=== PATIENT | male | born 1960 | race Caucasian/White ===

== ENCOUNTER 2018-04-22 20:01 | Observation (INO) | payer BC, OTHER ==
[~2018-04-22] VITALS: Ht 172.7 cm; Wt 93.1 kg
[~2018-04-22 20:01] MED LIST: ALLO300; MECL25 PO; PROM25SU8 PO
[2018-04-22 20:13] VITALS: BP 172/96; PULSE 82; RESP 18; TEMP 99; O2SAT 95
[2018-04-22] MEDS ORDERED: ASPIRIN 325 MG TAB PO ONE (20:15)
[2018-04-22] MEDS ORDERED: SODIUM CHLORIDE 0.9% FLUSH 10 ML FLUSH IVF PRN (20:15)
[2018-04-22] MEDS ORDERED: LISI-515 PO (20:18)
[2018-04-22] MEDS ORDERED: ALLO100T PO (20:18)
[2018-04-22] MEDS ORDERED: AMAN100T PO (20:18)
[2018-04-22] MEDS ORDERED: ZANT150T2 PO (20:19)
--- NOTE | 2018-04-22 20:21 | PD ---
HPI Chief Complaint: Chest Pain Time Seen by Provider: 20:09 Travel History International Travel<30 days: No Contact w/Intl Traveler<30days: No Traveled to known affect area: No History of Present Illness HPI This patient complains of chest pressure. Located in the center sternum. Duration 30 hours. No alleviating factors. No exacerbating factors. Symptoms are not exertional. He denies coronary artery disease. He had a negative stress test 5 years ago but not recently. Severity is moderate. No pleuritic symptoms. No shortness of breath or fever cough PFSH Past Medical History Gout: Yes (STARTED ALLOPURINAL JUL 2007) Kidney Stones: Yes Past Surgical History Appendectomy: Yes Other Surgery: Yes (LITHOTRIPSY) Social History Alcohol Use: Yes (2 TIMES PER MONTH SOCIALLY) Tobacco Use: No Substance Use: No Allergies-Medications (Allergen,Severity, Reaction): Coded Allergies: No Known Allergies (Verified Adverse Reaction, Unknown, 04/22/18) Reported Meds & Prescriptions Reported Meds & Active Scripts Active Reported Zantac (Ranitidine HCl) 150 Mg Tab 150 Mg PO DAILY Allopurinol 100 Mg Tab 100 Mg PO DAILY Lisinopril 20 Mg Tab 20 Mg PO DAILY Review of Systems General / Constitutional: No: Fever Eyes: No: Visual changes HENT: No: Headaches Cardiovascular: Positive: Chest Pain or Discomfort Respiratory: No: Shortness of Breath Gastrointestinal: No: Abdominal Pain Genitourinary: No: Dysuria Musculoskeletal: No: Pain Skin: No Rash Neurologic: No: Weakness Psychiatric: No: Depression Endocrine: No: Polydipsia Hematologic/Lymphatic: No: Easy Bruising Physical Exam Narrative GENERAL: Well-nourished, well-developed patient in no apparent distress. SKIN: Focused skin assessment reveals no rash and nodules. Skin is Warm and dry. HEAD: Atraumatic. Normocephalic. EYES: Pupils equal and round. No scleral icterus. No injection or drainage. ENT: No nasal bleeding or discharge. Mucous membranes pink and moist. NECK: Trachea midline. No JVD. CARDIOVASCULAR: Regular rate and rhythm. No murmur appreciated. RESPIRATORY: No accessory muscle use. Clear to auscultation. Breath sounds equal bilaterally. GASTROINTESTINAL: Abdomen soft, non-tender, nondistended. Hepatic and splenic margins not palpable. MUSCULOSKELETAL: No obvious deformities. No clubbing. No cyanosis. No edema. NEUROLOGICAL: Awake and alert. No obvious cranial nerve deficits. Motor grossly within normal limits. Normal speech. PSYCHIATRIC: Appropriate mood and affect; insight and judgment normal. Data Data Last Documented VS Vital Signs Date Time Temp Pulse Resp B/P (MAP) Pulse Ox O2 Delivery O2 Flow Rate FiO2 04/22/18 21:05 73 18 147/93 (111) 96 Room Air 04/22/18 20:13 99.0 Orders Orders Electrocardiogram (04/22/18 20:14) Basic Metabolic Panel (Bmp) (04/22/18 20:14) Ckmb (Isoenzyme) Profile (04/22/18 20:14) Complete Blood Count With Diff (04/22/18 20:14) Magnesium (Mg) (04/22/18 20:14) Prothrombin Time / Inr (Pt) (04/22/18 20:14) Act Partial Throm Time (Ptt) (04/22/18 20:14) Troponin I (04/22/18 20:14) Chest, Single Ap (04/22/18 20:14) Ecg Monitoring (04/22/18 20:14) Iv Access Insert/Monitor (04/22/18 20:14) Oximetry (04/22/18 20:14) Aspirin (Aspirin) (04/22/18 20:15) Sodium Chloride 0.9% Flush (Ns Flush) (04/22/18 20:15) CKMB (04/22/18 20:21) CKMB% (04/22/18 20:21) Labs Laboratory Tests Test 04/22/18 20:21 White Blood Count 8.1 TH/MM3 Red Blood Count 4.88 MIL/MM3 Hemoglobin 14.8 GM/DL Hematocrit 42.1 % Mean Corpuscular Volume 86.3 FL Mean Corpuscular Hemoglobin 30.4 PG Mean Corpuscular Hemoglobin Concent 35.2 % Red Cell Distribution Width 12.6 % Platelet Count 236 TH/MM3 Mean Platelet Volume 8.9 FL Neutrophils (%) (Auto) 52.5 % Lymphocytes (%) (Auto) 38.0 % Monocytes (%) (Auto) 7.4 % Eosinophils (%) (Auto) 1.6 % Basophils (%) (Auto) 0.5 % Neutrophils # (Auto) 4.3 TH/MM3 Lymphocytes # (Auto) 3.1 TH/MM3 Monocytes # (Auto) 0.6 TH/MM3 Eosinophils # (Auto) 0.1 TH/MM3 Basophils # (Auto) 0.0 TH/MM3 CBC Comment DIFF FINAL Differential Comment Prothrombin Time 11.9 SEC Prothromb Time International Ratio 1.2 RATIO Activated Partial Thromboplast Time 25.3 SEC Blood Urea Nitrogen 18 MG/DL Creatinine 1.20 MG/DL Random Glucose 126 MG/DL Calcium Level 8.9 MG/DL Magnesium Level 2.1 MG/DL Sodium Level 143 MEQ/L Potassium Level 3.0 MEQ/L Chloride Level 109 MEQ/L Carbon Dioxide Level 24.5 MEQ/L Anion Gap 10 MEQ/L Estimat Glomerular Filtration Rate 62 ML/MIN Total Creatine Kinase 145 U/L Creatine Kinase MB 0.9 NG/ML Troponin I LESS THAN 0.02 NG/ML MDM Medical Decision Making Medical Screen Exam Complete: Yes Emergency Medical Condition: Yes Medical Record Reviewed: Yes Differential Diagnosis Differential diagnosis includes [place], angina, pericarditis, pleurisy, GERD, anxiety. Narrative Course I have reviewed the patient's electronic medical record. I reviewed his EKG which shows sinus rhythm but no ST elevation Extended cardiac monitoring reveals sinus rhythm without ectopy I gave him an aspirin IV placed and labs sent I reviewed his chest x-ray which is normal Had a discussion regarding his chest discomfort. Etiology unclear but he has risk factors for CAD. Recommending observation in the chest pain center to rule out cardiac cause of his symptoms. He is agreeable Potassium is low at 3.0 otherwise labs are normal including cardiac enzyme I placed a call to the hospitalist to discuss Diagnosis Primary Impression: Chest pain Qualified Codes: R07.9 - Chest pain, unspecified Additional Impression: Hypokalemia Admitting Information Admitting Physician Requests: Observation Kory Cary MD Apr 22, 2018 20:21
[2018-04-22 20:45] LABS: AUTOMATED NEUTROPHIL # 4.3 TH/MM3 (1.8-7.7); BASOPHIL % 0.5 % (0.0-2.0); EOSINOPHIL # 0.1 TH/MM3 (0-0.4); EOSINOPHIL % 1.6 % (0.0-4.0); HEMATOCRIT 42.1 % (39.0-51.0); HEMOGLOBIN 14.8 GM/DL (13.0-17.0); LYMPHOCYTE # 3.1 TH/MM3 (1.0-4.8); MEAN CELL VOLUME 86.3 FL (80.0-100.0); MEAN CORPUSCULAR HEMOGLOBIN 30.4 PG (27.0-34.0); MEAN CORPUSCULAR HGB CONC 35.2 % (32.0-36.0); MEAN PLATELET VOLUME 8.9 FL (7.0-11.0); MONO % 7.4 % (0.0-8.0); MONOCYTE # 0.6 TH/MM3 (0-0.9); NEUT % 52.5 % (16.0-70.0); PLATELET COUNT 236 TH/MM3 (150-450); RED BLOOD COUNT 4.88 MIL/MM3 (4.50-5.90); RED CELL DISTRIBUTION WIDTH 12.6 % (11.6-17.2); WHITE BLOOD COUNT 8.1 TH/MM3 (4.0-11.0)
[2018-04-22 20:54] LABS: CHLORIDE 109 MEQ/L (98-107); SODIUM (NA) 143 MEQ/L (136-145)
[2018-04-22 20:56] LABS: BICARBONATE 24.5 MEQ/L (21.0-32.0); CALCIUM 8.9 MG/DL (8.5-10.1); GLUCOSE,RANDOM 126 MG/DL (74-106); MAGNESIUM 2.1 MG/DL (1.5-2.5)
[2018-04-22 20:57] LABS: BLOOD UREA NITROGEN 18 MG/DL (7-18)
[2018-04-22 21:00] LABS: GLOMERULAR FILTRATION RATE 62 ML/MIN (>89)
--- NOTE | 2018-04-22 21:02 | RADRPT ---
EXAM DATE: 04/22/2018 8:55 PM EDT AGE/SEX: 58 years / Male INDICATIONS: Chest pressure x 2 days. CLINICAL DATA: This is the patient's initial encounter. Patient reports that signs and symptoms have been present for 2 days and indicates a pain score of 6/10. MEDICAL/SURGICAL HISTORY: Hypertension. Renal calculi. Appendectomy. Lithotripsy. COMPARISON: No prior exams available for comparison. FINDINGS: Cardiomegaly with mild basilar atelectasis. No significant effusion. No pneumothorax. Degenerative ch alaina in the spine. CONCLUSION: Cardiomegaly with minimal basilar atelectasis. Electronically signed by: Bud Polk MD 04/22/2018 9:01 PM EDT
[2018-04-22 21:05] VITALS: BP 147/93; PULSE 73; RESP 18; O2SAT 96
[2018-04-22 21:05] LABS: TROPONIN I LESS THAN 0.02 NG/ML (0.02-0.05)
[2018-04-22 21:19] LABS: INTERNATIONAL NORMALIZED RATIO 1.2 RATIO; PROTHROMBIN TIME - PATIENT 11.9 SEC (9.8-11.6)
[2018-04-22] MEDS ORDERED: POTASSIUM CHLORIDE 25 MEQ EFFERVESCENT TAB PO ONE (21:30)
[2018-04-22] MEDS ORDERED: SODIUM CHLORIDE 0.9% FLUSH 10 ML FLUSH IV FLUSH PRN (21:45)
[2018-04-22 22:37] VITALS: BP 150/93
[2018-04-22 23:23] VITALS: O2SAT 97
[2018-04-22 23:46] VITALS: BP 156/94; PULSE 67; RESP 20; TEMP 98.1; O2SAT 97
[2018-04-23 01:00] VITALS: PULSE 60
[2018-04-23 02:43] LABS: TROPONIN I LESS THAN 0.02 NG/ML (0.02-0.05)
[2018-04-23 05:14] VITALS: BP 127/74; PULSE 56; RESP 18; TEMP 96.7; O2SAT 96
[2018-04-23 07:35] VITALS: BP 153/86; PULSE 53; RESP 20; TEMP 97.6; O2SAT 97
[2018-04-23 08:25] VITALS: O2SAT 96
[2018-04-23] MEDS ORDERED: LISINOPRIL 20 MG TAB PO SCH (09:00)
[2018-04-23] MEDS ORDERED: ALLOPURINOL 100 MG TAB PO SCH (09:00)
[2018-04-23] MEDS ORDERED: SODIUM CHLORIDE 0.9% FLUSH 10 ML FLUSH IV FLUSH SCH (09:00)
[2018-04-23] MEDS ORDERED: FAMOTIDINE 20 MG TAB PO SCH (09:00)
[2018-04-23 09:36] LABS: BICARBONATE 26.8 MEQ/L (21.0-32.0); CALCIUM 8.4 MG/DL (8.5-10.1); CREATININE 0.99 MG/DL (0.60-1.30)
[2018-04-23 10:21] LABS: TROPONIN I LESS THAN 0.02 NG/ML (0.02-0.05)
[2018-04-23 11:54] VITALS: BP 132/78; PULSE 73; RESP 20; TEMP 98.4; O2SAT 98
--- NOTE | 2018-04-23 13:16 | HHI.HP ---
[facility] Service [facility] Primary Care Physician Joshua Newman D.O. Admission Diagnosis chest pain Diagnoses: (1) Chest pain Diagnosis: Principal Chief Complaint: Chest pain Travel History International Travel<30 Days: No Contact w/Intl Traveler <30 Da: No Traveled to Known Affected Are: No History of Present Illness Written by Kory Olivera, acting as scribe for Dr. Mercado on 04/23/18 at 13: 09. 4-year-old male with known history of hypertension who presented to the emergency department with acute onset of chest pain. Patient states that his normal state of health until 8 PM while he was eating dinner last night when he developed sudden onset of chest pressure in which he agreed with and feels like an elephant sitting on his chest. He had associated lightheadedness , diaphoresis, pressure into the back of his neck. Left arm heaviness, shortness of breath, tingling sensation over his whole body. He states that he had a strange feeling going over him where he felt that everything was in slow motion. Patient indicates that he has had that tingling sensation intermittently over the last 8 months. There is no indication of any pain into his jaw, nausea, vomiting. Patient came directly to the emergency department upon onset of discomfort. Patient was given potassium and aspirin in the emergency department and his discomfort completely resolved. Patient indicates that he has had full cardiac workup done before by Dr. Ramires to include EKG, echocardiogram, exercise stress test approximately 5 years ago. He recently was seen by his primary medical doctor Dr. Newman on April 11. Patient had workup done emergency department and was recommended that the patient be observed in chest pain center. Review of Systems Constitutional: COMPLAINS OF: Diaphoretic episodes, Dizziness Respiratory: COMPLAINS OF: Shortness of breath Cardiovascular: COMPLAINS OF: Chest pain Except as stated in HPI: all other systems reviewed are Neg Past Family Social History Past Medical History Hypertension History of renal lithiasis Throat nodule Gouty arthritis Past Surgical History Appendectomy Lithotripsy Reported Medications Reported Meds & Active Scripts Active Reported Zantac (Ranitidine HCl) 150 Mg Tab 150 Mg PO DAILY Allopurinol 100 Mg Tab 100 Mg PO DAILY Lisinopril 20 Mg Tab 20 Mg PO DAILY Allergies: Coded Allergies: No Known Allergies (Verified Allergy, Unknown, 04/22/18) Family History Reviewed is significant for father at age 25 from diabetes and alcohol. Mother from lung cancer Social History Patient states that he drinks alcohol approximately 2 times a month. Denies any illicit drugs. Denies any tobacco use Physical Exam Vital Signs Vital Signs Date Time Temp Pulse Resp B/P (MAP) Pulse Ox O2 Delivery O2 Flow Rate FiO2 04/23/18 11:54 98.4 73 20 132/78 (96) 98 04/23/18 08:25 96 Nasal Cannula 21 04/23/18 07:35 97.6 53 20 153/86 (108) 97 04/23/18 05:14 96.7 56 18 127/74 (91) 96 04/23/18 01:00 60 04/22/18 23:46 98.1 67 20 156/94 (114) 97 04/22/18 23:23 97 21 04/22/18 22:37 62 16 150/93 (112) 98 04/22/18 21:05 73 18 147/93 (111) 96 Room Air 04/22/18 20:22 Room Air 04/22/18 20:13 99.0 82 18 172/96 (121) 95 Physical Exam GENERAL: Well-developed, well-nourished, in no acute distress. alert and orientated HEENT: Extraocular muscles are intact. Conjunctivae were clear. NECK: Supple without any masses. Trachea midline no deviation. No JVD CARDIAC: Regular rhythm, regular rate. S1/S2 are heard. No murmurs. LUNGS: Clear to auscultation bilaterally. No wheeze. No use of accessory muscles on inspiration or expiration. ABDOMEN: Soft, nontender. Nondistended. Bowel sounds heard in all 4 quadrants. Negative rebound, negative guarding EXTREMITIES: No edema, pulses are equal bilaterally. NEUROLOGY: Mood and affect appear appropriate. Cranial nerves II through XII grossly intact. Muscle strength 5/5 in upper and lower extremities bilaterally. Laboratory Laboratory Tests Test 04/22/18 20:21 04/23/18 07:45 White Blood Count 8.1 Red Blood Count 4.88 Hemoglobin 14.8 Hematocrit 42.1 Mean Corpuscular Volume 86.3 Mean Corpuscular Hemoglobin 30.4 Mean Corpuscular Hemoglobin Concent 35.2 Red Cell Distribution Width 12.6 Platelet Count 236 Mean Platelet Volume 8.9 Neutrophils (%) (Auto) 52.5 Lymphocytes (%) (Auto) 38.0 Monocytes (%) (Auto) 7.4 Eosinophils (%) (Auto) 1.6 Basophils (%) (Auto) 0.5 Neutrophils # (Auto) 4.3 Lymphocytes # (Auto) 3.1 Monocytes # (Auto) 0.6 Eosinophils # (Auto) 0.1 Basophils # (Auto) 0.0 CBC Comment DIFF FINAL Differential Comment Prothrombin Time 11.9 Prothromb Time International Ratio 1.2 Activated Partial Thromboplast Time 25.3 Blood Urea Nitrogen 18 21 Creatinine 1.20 0.99 Random Glucose 126 94 Calcium Level 8.9 8.4 Magnesium Level 2.1 Sodium Level 143 144 Potassium Level 3.0 3.9 Chloride Level 109 112 Carbon Dioxide Level 24.5 26.8 Anion Gap 10 5 Estimat Glomerular Filtration Rate 62 77 Total Creatine Kinase 145 132 Creatine Kinase MB 0.9 0.8 Troponin I LESS THAN 0.02 LESS THAN 0.02 Result Diagram: 04/22/18202004/23/18 0745 Imaging Last Impressions Chest X-Ray 04/22/182013 Signed Impressions: CONCLUSION: Cardiomegaly with minimal basilar atelectasis. Caprini VTE Risk Assessment Caprini VTE Risk Assessment: No/Low Risk (score <= 1) Caprini Risk Assessment Model Point Value = 1 Point Value = 2 Point Value = 3 Point Value = 5 Age 41-60 Minor surgery BMI > 25 kg/m2 Swollen legs Varicose veins or History of unexplained or recurrent spontaneous Oral contraceptives or hormone replacement Sepsis (< 1 month) Serious lung disease, including pneumonia (< 1 month) Abnormal pulmonary function Acute myocardial infarction Congestive heart failure (< 1 month) History of inflammatory bowel disease Medical patient at bed rest Age 61-74 Arthroscopic surgery Major open surgery (> 45 min) Laparoscopic surgery (> 45 min) Malignancy Confined to bed (> 72 hours) Immobilizing plaster cast Central venous access Age >= 75 History of VTE Family history of VTE Factor V Leiden Prothrombin 11522B Lupus anticoagulant Anticardiolipin antibodies Elevated serum homocysteine Heparin-induced thrombocytopenia Other congenital or acquired thrombophilia Stroke (< 1 month) Elective arthroplasty Hip, pelvis, or leg fracture Acute spinal cord injury (< 1 month) Prophylaxis Regimen Total Risk Factor Score Risk Level Prophylaxis Regimen 0-1 Low Early ambulation 2 Moderate Order ONE of the following: *Sequential Compression Device (SCD) *Heparin 5000 units SQ BID 3-4 Higher Order ONE of the following medications: *Heparin 5000 units SQ TID *Enoxaparin/Lovenox 40 mg SQ daily (WT < 150 kg, CrCl > 30 mL/min) *Enoxaparin/Lovenox 30 mg SQ daily (WT < 150 kg, CrCl > 10-29 mL/min) *Enoxaparin/Lovenox 30 mg SQ BID (WT < 150 kg, CrCl > 30 mL/min) AND/OR *Sequential Compression Device (SCD) 5 or more Highest Order ONE of the following medications: *Heparin 5000 units SQ TID (Preferred with Epidurals) *Enoxaparin/Lovenox 40 mg SQ daily (WT < 150 kg, CrCl > 30 mL/min) *Enoxaparin/Lovenox 30 mg SQ daily (WT < 150 kg, CrCl > 10-29 mL/min) *Enoxaparin/Lovenox 30 mg SQ BID (WT < 150 kg, CrCl > 30 mL/min) AND *Sequential Compression Device (SCD) Assessment and Plan Assessment and Plan 58-year-old male who presented emergency department because of acute onset of chest pressure while eating dinner Chest discomfort -Patient with increased risk factors include age, male, hypertension -Patient has been ruled out for acute coronary event with serial cardiac enzymes that are negative -Serial EKGs were reviewed and show sinus bradycardia without any acute changes -Exercise stress test was performed and indicated low probability of significant ischemic heart disease -Patient was given aspirin in the emergency department Hypokalemia -Status post replacement emergency department in stable at this time Hypertension -Home medications continued DVT prevention -Low risk, early ambulation This note was transcribed by elidia Olivera. I, Dr. Kellee Mercado personally performed the history, physical exam, and medical decision making; and confirmed the accuracy of the information in the transcribed note. Authenticated by Dr. Kellee Mercado on 04/23/18 at 13:09. Discharge disposition Discharge home in stable condition Activity: Ad leah. Diet: Healthy heart diet Medication per medication reconciliation Follow-up with primary medical doctor in 1 week Code Status Full code Discussed Condition With patient Problem Qualifiers (1) Chest pain: Qualified Codes: R07.9 - Chest pain, unspecified Kory Olivera Apr 23, 2018 13:16 Kellee Mercado MD Apr 23, 2018 14:13
--- NOTE | 2018-04-23 13:45 | HHI.DCPOC ---
Discharge Care Plan Diagnosis: (1) Chest pain (2) Hypokalemia Goals to Promote Your Health * To prevent worsening of your condition and complications * To maintain your health at the optimal level Directions to Meet Your Goals Take your medications as prescribed Follow your dietary instruction Follow activity as directed Keep your appointments as scheduled Take your immunizations and boosters as scheduled If your symptoms worsen call your PCP, if no PCP go to Urgent Care Center or Emergency Room Smoking is Dangerous to Your Health. Avoid second hand smoke Call the 24-hour hour crisis hotline for domestic abuse at Kory Olivera Apr 23, 2018 13:45
--- NOTE | 2018-04-23 14:06 | RADRPT ---
EXAM DATE: 04/23/2018 1:59 PM EDT AGE/SEX: 58 years / Male INDICATIONS: Chest pain. CLINICAL DATA: This is the patient's subsequent encounter. Patient reports that signs and symptoms h ave been present for 2 days and indicates a pain score of 3/10. MEDICAL/SURGICAL HISTORY: None. None. COMPARISON: No prior exams available for comparison. FINDINGS: PA and lateral views of the chest demonstrate the lungs to be symmetrically aerated without evidence of mass, infiltrate or effusion. The cardiomediastinal contours are unremarkable. Osseous structures are intact. CONCLUSION: No acute findings. Tortuous aorta. Electronically signed by: Bud Polk MD 04/23/2018 2:04 PM EDT
--- NOTE | 2018-04-23 14:29 | EKG ---
Date Performed: 04/23/2018 Time Performed: 05:52:45 PTAGE: 58 years EKG: SINUS BRADYCARDIA MODERATE VOLTAGE CRITERIA FOR LVH, CONSIDER NORMAL VARIANT BORDERLINE ECG PREVIOUS TRACING : 04/23/2018 01.58 Since the previous tracing, no significant change noted DOCTOR: Kieran Godwin Interpretating Date/Time 04/23/2018 14:26:49
--- NOTE | 2018-04-23 14:32 | EKG ---
Date Performed: 04/23/2018 Time Performed: 01:58:25 PTAGE: 58 years EKG: SINUS BRADYCARDIA MODERATE VOLTAGE CRITERIA FOR LVH, CONSIDER NORMAL VARIANT POSSIBLE SEPTA L MYOCARDIAL INFARCTION BORDERLINE ECG PREVIOUS TRACING : 04/22/2018 23.17 Since the previous tracing, no significant change noted DOCTOR: Kieran Godwin Interpretating Date/Time 04/23/2018 14:30:07
--- NOTE | 2018-04-23 14:34 | EKG ---
Date Performed: 04/22/2018 Time Performed: 23:17:27 PTAGE: 58 years EKG: SINUS BRADYCARDIA VOLTAGE CRITERIA FOR LVH ABNORMAL ECG PREVIOUS TRACING : 04/22/2018 20.06 Since the previous tracing, no significant change noted DOCTOR: Kieran Godwin Interpretating Date/Time 04/23/2018 14:32:13
--- NOTE | 2018-04-23 14:38 | EKG ---
Date Performed: 04/22/2018 Time Performed: 20:06:08 PTAGE: 58 years EKG: Sinus rhythm BORDERLINE LEFT AXIS DEVIATION VOLTAGE CRITERIA FOR LVH NONSPECIFIC ST & T-WAVE ABNORMALITY ABNORMAL ECG INTERPRETATION BASED ON A DEFAULT AGE OF 40 YEARS PREVIOUS TRACING : 08/18/2012 10.25 Since the previous tracing, no significant change not ed DOCTOR: Kieran Godwin Interpretating Date/Time 04/23/2018 14:35:45
--- NOTE | 2018-04-25 06:49 | TR ---
Date Performed: 04/23/2018 Time Performed: 10:58:56 DOCTOR: Neal Sierra DRUG LIST: CLINICAL HISTORY: REASON FOR TEST: Chest pain REASON FOR ENDING: Completed Protocol OBSERVATION: Arrhythmia: None Chest Pain: None CONCLUSION: Patient tolerated TERE protocol with Total Exercise Time=6:01 Maximum DZ=727 % Max HR Achieved=88.0% Maximum DA=165/90, Yesting stopped secondary to goals acheived, Patient without an y chest pain during testing, During peak exercise patient had quick upsloping ST segments, HR and BP appropriate response to exercise, Recovery period, HR and BP returned to baseline COMMENTS:
== END 2018-04-23 14:45 | disposition home or self-care (01) ==
LOC: PHED 20:01 → PHEDA 21:28 → PH3A 22:45
PROVIDERS: ADMIT Hospitalist; ATTEND Hospitalist
DX: R07.89 Other chest pain (principal); E87.6 Hypokalemia; I11.9 Hypertensive heart disease without heart failure; R06.02 Shortness of breath; R42 Dizziness and giddiness; R61 Generalized hyperhidrosis; R20.2 Paresthesia of skin; R00.1 Bradycardia, unspecified; R94.31 Abnormal electrocardiogram [ECG] [EKG]; Z79.899 Other long term (current) drug therapy
CPT/HCPCS: 71045; 71046; 80048; 82550; 82552; 83735; 84484; 85025; 85610; 85730; 93005; 93017; 99285; G0378